=== PATIENT | female | born 1970 | race Caucasian/White ===

== ENCOUNTER 2016-06-02 14:14 | Emergency (ER) | payer OTHER ==
[~2016-06-02] VITALS: Ht 165.1 cm; Wt 88.0 kg
[~2016-06-02 14:14] MED LIST: NEBI10TA PO; NYST30OI6 TOP; OMEP40CA36 PO; PRED20TA PO
--- OUTSIDE RECORDS SUMMARY | 2016-06-02 14:19 | XMS REPORT | Continuity of Care Document ---
Author Author [facility] Address Unknown Phone Unavailable Care Team Providers Care Sergeant Of Officers Name Role Phone Natalie Salas PCP [phone] Insurance Providers Payer Name Policy Number Subscriber Name Relationship [employer] [id number] Adelaida Chung 20 Self / Same As Patient Advance Directives Directive Response Recorded Date/Time Advanced Directives Unknown 04/07/16 6:23am Chief Complaint and Reason for Visit Chief Complaint Allergic Reaction Reason for Visit Allergic urticaria Problems Active Problems Medical Problem Onset Date Status Allergic rhinitis Unknown Acute Allergic urticaria ~04/07/2016 Acute Ear fullness Unknown Acute Ear pain, right Unknown Acute Folliculitis Unknown Acute HTN (hypertension), benign Unknown Acute Otitis media Unknown Acute Sinusitis Unknown Acute Yeast infection of the skin Unknown Acute Medications Current Home Medications Medication Dose Units Route Directions Days/Qty Instructions Start Date Nebivolol 10 Mg 10 Mg ORAL Daily 04/07/16 Omeprazole 40 Mg 40 Mg ORAL Daily 04/07/16 Prednisone 20 Mg 20 Mg ORAL Twice A Day 8 04/07/16 Past Home Medications Medication Directions Ordered Status Nystatin (Mycostatin Ointment) 30 Gm Oint...g., 1 Gm Topical Twice A Day Discontinued Social History Query Response Start Date Stop Date Smoking Status Unknown, if ever smoked Hospital Discharge Instructions No hospital discharge instructions. Plan of Care Discharge Date 04/07/16 7:38am Disposition 01 HOME OR SELF-CARE Condition at Discharge Stable Instructions/Education Provided Allergies (ED) Prescriptions See Medication Section Referrals Natalie Salas - Additional Instructions/Education Some of your test results may not be complete prior to your leaving the Emergency Department. The Emergency Department is not authorized to give test results over the phone. Please contact the doctor's office listed in this packet of information for your final results. Follow up with your primary care physician or return to the Emergency Department for worsening or worrisome symptoms. * Emergency Department phone number: [phone], x [phone]* MEDICAL RECORD If you need copies of your X-rays, call [phone]. If you need copies of your medical record, including lab results, a signed authorization for release of records will be required. A telephone call for release of Health Information is not allowed. BILLING Billing can sometimes be confusing and frustrating. To help avoid confusion in the future, please take a moment to acquaint yourself with the billing parties for services. SERVICE BILLING [facility] Physician Services [facility] X-rays [facility] Patients will receive bills for services from the appropriate provider. If you have any questions about your [facility] bill, our staff will be happy to assist you. Please call [phone], and ask for the billing department. THANK YOU for choosing [facility] as your emergency care provider! Care Plan and Goals ~~Discharge Care Plan~~ Problem: Rash/hives Goal: Decreased redness, itching, and blotches. Instructions: Take medication(s) as directed. Keep a log of medication times and dosages to avoid over or under dosage. Avoid triggers that cause your rash or hives. Functional Status No functional status results. Allergies, Adverse Reactions, Alerts No known allergies. Immunizations No immunization records. Vital Signs Acute Vital Signs Vital Response Date/Time Temperature (Fahrenheit) 97.8 04/07/2016 7:38am Pulse 70 bpm 04/07/2016 7:38am Respirations 18 04/07/2016 7:38am Height 5 ft 4 in Weight 190 lb Body Mass Index 32.0 kg/m^2 Results No known relevant diagnostic tests, laboratory data and/or discharge summary. Procedures No known history of procedures.
[2016-06-02] MEDS ORDERED: FAMOTIDINE IV 20 MG in SODIUM CHLORIDE VIAL (PF) 10 ML IV ONE (14:35)
[2016-06-02] MEDS ORDERED: methylPREDNISolone 125 MG (Solu-MEDROL) VIAL IV ONE (14:35)
[2016-06-02] MEDS ORDERED: diphenhydrAMINE 50 MG/ML INJ (BENADRYL) IV ONE (14:35)
[2016-06-02] MEDS ORDERED: SODIUM CHLORIDE 250 ML ONE (14:36)
[2016-06-02] MEDS ORDERED: TRIA1TAB42 PO (15:10)
[2016-06-02] MEDS ORDERED: ONDANSETRON 2 MG/ML (Z0FRAN) 2 ML VIAL IV ONE (15:25)
[2016-06-02] MEDS ORDERED: METH4TAB27 PO (15:59)
[2016-06-02] MEDS ORDERED: EPIN0.3P2 IM (15:59)
[2016-06-02 16:21] VITALS: BP 115/78
== END 2016-06-02 16:17 | disposition home or self-care (01) ==
LOC: ED 14:16
DX: R22.0 Localized swelling, mass and lump, head (principal); T36.0X5A Adverse effect of penicillins, initial encounter
CPT/HCPCS: 96365; 96375; 99283; J1200; J2405; J2930; J3490; J7050